=== PATIENT | female | born 1940 | race Caucasian/White ===

== ENCOUNTER → 2017-10-04 | Outpatient (CLI) | payer MEDICARE, BC | LOC: MC.RAD 14:08 | DX: Z12.31 Encounter for screening mammogram for malignant neoplasm of breast (principal) ==

== ENCOUNTER → 2017-12-11 | Outpatient (CLI) | payer MEDICARE, BC | LOC: COL.RAD 10:33 | DX: K80.20 Calculus of gallbladder without cholecystitis without obstruction (principal) | CPT/HCPCS: Q9967 ==

== ENCOUNTER 2017-12-29 07:53 | Day surgery (SDC) | payer MEDICARE, BC ==
[~2017-12-29] VITALS: Ht 167.6 cm; Wt 80.0 kg
[2017-12-29 08:52] VITALS: BP 130/66; PULSE 82; TEMP 98.2
[2017-12-29] MEDS ORDERED: HCTZ 25MG TAB25 MG PO (09:04)
[2017-12-29] MEDS ORDERED: COZAAR 25MG25 MG/TAB PO (09:04)
[2017-12-29] MEDS ORDERED: NEURONTIN300 MG/CAP PO (09:04)
[2017-12-29] MEDS ORDERED: MULTI VITAMINS1 TAB PO (09:05)
[2017-12-29] MEDS ORDERED: ZANTAC 150MG T150 MG PO (09:05)
[2017-12-29] MEDS ORDERED: VITAMIN D 400400 IU PO (09:05)
[2017-12-29] MEDS ORDERED: VITAMIN B COMPL1 SGL PO (09:06)
[2017-12-29] MEDS ORDERED: OMEGA-3 1000 MG1 CAP PO (09:06)
[2017-12-29] MEDS ORDERED: ASPIRIN 81M81 MG/TA2 PO (09:07)
[2017-12-29 11:50] VITALS: BP 106/43; PULSE 65; TEMP 98.4
[2017-12-29 12:05] VITALS: BP 110/45; PULSE 64
[2017-12-29 12:20] VITALS: BP 107/51; PULSE 68
[2017-12-29 12:35] VITALS: BP 115/48; PULSE 73
[2017-12-29 12:50] VITALS: BP 114/48; PULSE 62
[2017-12-29] MEDS ORDERED: NORCO 325 MG-51 TAB PO (12:56)
== END 2017-12-29 14:10 | disposition home or self-care (01) ==
LOC: SDCO 07:53
DX: K80.10 Calculus of gallbladder with chronic cholecystitis without obstruction (principal); I10 Essential (primary) hypertension; K21.9 Gastro-esophageal reflux disease without esophagitis; M19.90 Unspecified osteoarthritis, unspecified site; Z79.82 Long term (current) use of aspirin; Z90.710 Acquired absence of both cervix and uterus; Z80.3 Family history of malignant neoplasm of breast; Z82.49 Family history of ischemic heart disease and other diseases of the circulatory system
CPT/HCPCS: J1100; J1885; J2405; J2704; J2710; J3010; J7120; Q9967

== ENCOUNTER 2018-03-02 16:14 | Emergency (ER) | payer MEDICARE, BC ==
[~2018-03-02] VITALS: Ht 167.6 cm; Wt 77.3 kg
[~2018-03-02 16:14] MED LIST: ASPIRIN 81M81 MG/TA2 PO; COZAAR 25MG25 MG/TAB PO; HCTZ 25MG TAB25 MG PO; MULTI VITAMINS1 TAB PO; NEURONTIN300 MG/CAP PO; NORCO 325 MG-51 TAB PO; OMEGA-3 1000 MG1 CAP PO; VITAMIN B COMPL1 SGL PO; VITAMIN D 400400 IU PO; ZANTAC 150MG T150 MG PO
[2018-03-02 16:15] VITALS: TEMP 98.4
[2018-03-02] MEDS ORDERED: OXYCODONE-ACETAMINOP (16:54)
[2018-03-02] MEDS ORDERED: PERCOCET 325 MG1 TA2 PO (16:54)
[2018-03-02] MEDS ORDERED: ROBAXIN 75750 MG/TAB PO (16:57)
[2018-03-02 17:29] LABS: MEAN CELL VOLUME 92 fl (80.0-100.0); MEAN CORPUSCULAR HGB CONC 34 g/dl (33.0-37.0); MEAN PLATELET VOLUME 8.5 fl (7.4-10.4); PLATELET COUNT 383 K/mm3 (130-400); RED BLOOD COUNT 3.08 M/mm3 (4.10-5.30); REDCELL DISTRIBUTION WIDTH-CV 12.7 % (11.5-14.5)
[2018-03-02 17:32] LABS: HEMATOCRIT 28.3 % (37.0-47.0); HEMOGLOBIN 9.5 g/dl (12.5-16.0); MEAN CORPUSCULAR HEMOGLOBIN 31 pg (27.0-31.0)
[2018-03-02 17:46] LABS: BILIRUBIN,TOTAL 0.7 mg/dL (0.0-1.0); C-REACTIVE PROTEIN 5.4 mg/dL (0.0-0.9); CALCIUM 10.2 mg/dL (8.4-10.2); CREATININE, serum 0.63 mg/dL (0.52-1.25); POTASSIUM 3.5 mmol/L (3.4-5.0)
[2018-03-02 17:47] LABS: BAND 1 % (0-10); EOSINOPHIL 2 % (0-4); LYMPHOCYTE 20 % (20.0-51.0); METAMYELOCYTE 1 % (0-0); NEUTROPHILS 71 % (42.0-75.2); PLATELET ESTIMATE NORMAL (NORMAL)
[2018-03-02 19:47] LABS: COLLECTION METHOD CLEAN CATCH
[2018-03-02 19:55] LABS: AMORPHOUS CRYSTAL Present /uL; PH 7 (5-8); SQUAMOUS EPITHELIAL 0-2 /hpf; URINE APPEARANCE Clear; URINE BACTERIA Rare /hpf; URINE BILIRUBIN Negative (NEGATIVE); URINE BLOOD Negative (NEGATIVE); URINE COLOR Yellow; URINE GLUCOSE Negative (NEGATIVE); URINE KETONE Negative (NEGATIVE); URINE LEUKOCYTE ESTERASE Negative (NEGATIVE); URINE NITRATE Negative (NEGATIVE); URINE PROTEIN(semi-quant) Negative (NEGATIVE); URINE RBC None Seen /hpf; URINE UROBILINOGEN Negative (NEGATIVE)
[2018-03-03 00:40] VITALS: BP 120/59; PULSE 78
== END 2018-03-03 00:40 | disposition short-term general hospital (02) ==
LOC: COL.ER 16:14
PROVIDERS: Emergency Medicine
DX: G89.18 Other acute postprocedural pain (principal); M54.5 Low back pain; Z98.1 Arthrodesis status; Z79.82 Long term (current) use of aspirin
CPT/HCPCS: J1170; J1885

== ENCOUNTER → 2018-10-05 | Outpatient (CLI) | payer MEDICARE, BC ==
[~2018-10-05] MED LIST changes: +OXYCODONE-ACETAMINOP; +PERCOCET 325 MG1 TA2 PO; +ROBAXIN 75750 MG/TAB PO
== END ==
LOC: MC.RAD 09:56
DX: Z12.31 Encounter for screening mammogram for malignant neoplasm of breast (principal)

== ENCOUNTER 2019-03-14 16:12 | Inpatient (IN) | payer MEDICARE, BC ==
[~2019-03-14] VITALS: Ht 165.1 cm; Wt 74.7 kg
[2019-04-15] VITALS (11 sets, daily range): BP systolic 94–140; BP diastolic 49–63; PULSE 64–71; TEMP 97–98.1
--- NOTE | 2019-04-15 10:08 | NUR ---
MONTRELL met with the patient and her Jimmy to discuss a discharge plan. The pt lives with Jimmy right outside of [place]. The pt does not use DME and reports independence with ADLs. The pt's PCP is Dr. Darnell and receives her medications from [facility] with no difficulties. The pt does not have advanced directives in the EMR and was not interested in obtaining a DPOA-HC form. The pt plans to return home with Jimmy and reports she has lots of family support. MONTRELL will continue to follow for any discharge recommendations.
--- NOTE | 2019-04-15 15:16 | NUR ---
PT TO ROOM 328 PER BED WITH MARIJA KIRKPATRICK PACU GIVING REPORT @ 9772. PT IS A/O X3 DRESSING TO LEFT KNEE CDI WITH OCCLUSIVE JAY WRAP OVER INCISION. IV TO PUMP, PT TOLERATED WELL.
--- NOTE | 2019-04-15 15:30 | NUR ---
CATHETER TO DD WITH CLEAR YELLOW URINE IN BAG.
--- NOTE | 2019-04-15 18:50 | NUR ---
REPORT TO EVANS RN.
--- NOTE | 2019-04-15 20:00 | NUR ---
Patient awake, alert and oriented x4. Reports pain to left knee 4/10. Ambulates with LAMINATING MACHINE TENDER in hallway, gait steady. Has bandaid to right knee and large bulky drsg to left knee. Good pedal pulses and CSM to left leg. Has walters to BSD with yellow urine. REfuses Gabapentin for HS dose as she only takes this daily now. IV to right wrist with IVF infusing without redness or swelling.
--- NOTE | 2019-04-16 00:05 | NUR ---
Patient ambulates in hallway again with FREIGHT AND PASSENGER AGENT. Ready for bed after that.
--- NOTE | 2019-04-16 03:00 | NUR ---
Patient complains of left knee pain 04/24 that woke her up. Medicated with [place] 7.5mg 1 at this time. Instructed to call if pain continues.
[2019-04-16 04:33] VITALS: BP 111/48; PULSE 65; TEMP 97.7
[2019-04-16 06:57] LABS: HEMOGLOBIN 10.7 g/dl (12.5-16.0)
[2019-04-16 07:06] LABS: HEMATOCRIT 30.9 % (37.0-47.0)
--- NOTE | 2019-04-16 07:10 | NUR ---
Report to Frankie KIRKPATRICK.
--- NOTE | 2019-04-16 07:19 | NUR ---
REPORT FROM EVANS KIRKPATRICK.
[2019-04-16 07:45] VITALS: BP 125/60; PULSE 56; TEMP 98.7
--- NOTE | 2019-04-16 09:43 | NUR ---
PATIENT UP TO RECLINER FOR BREAKFAST. PAIN WELL CONTROLLED WITH PO MEDS. GRACIELA SANCHEZ IN TO ROUND ON PT THIS AM. DRESSING CHANGE COMPLETED. MOHAMUD CATHETER DISCONTINUED PER ORDERS. TIP INTACT, PT TOLERATED PROCEEDURE WELL. PLAN ON DC HOME 04/17.
[2019-04-16 11:33] VITALS: BP 102/41; PULSE 69; TEMP 98.4
--- NOTE | 2019-04-16 13:16 | NUR ---
Initial visit; Patient thanked Supervisor [employer] for looking in on her and visiting. Supervisor [employer] wished patient well and offered God's blessings.
[2019-04-16 16:03] VITALS: BP 127/47; PULSE 71; TEMP 98.4
--- NOTE | 2019-04-16 19:16 | NUR ---
report to Juan Antonio KIRKPATRICK.
[2019-04-16 19:30] VITALS: BP 137/43; PULSE 80; TEMP 98.3
--- NOTE | 2019-04-16 22:00 | NUR ---
Pt. sitting up in bed at this time. Pt. ambulated with the aid this evening. Pt. tolerated well. Pt. is A&OX3, assessment compete. INT to rt. wrist patent. pt. reported pain at a 4 on pain scale, will give pain meds per orders. Pt. denies further needs.
[2019-04-16 22:37] VITALS: BP 148/49; PULSE 67; TEMP 98.2
[2019-04-17 04:07] VITALS: BP 108/88; PULSE 64; TEMP 97.7
--- NOTE | 2019-04-17 06:47 | NUR ---
bedside shift report received from KAYA Romano
--- NOTE | 2019-04-17 07:10 | NUR ---
assisted up to bathroom and voided qs, then out and into recliner, full assessment completed, see interventions for further info, will order breakfast soon, denies needs
[2019-04-17 07:15] VITALS: BP 135/79; PULSE 61; TEMP 98.2
[2019-04-17] MEDS ORDERED: ULTRAM 50MG TAB50 MG PO (07:40)
[2019-04-17] MEDS ORDERED: CELEBREX 200MG200 MG PO (07:40)
[2019-04-17] MEDS ORDERED: NORCO 325 MG-7.1 TAB PO (07:41)
[2019-04-17 07:43] LABS: HEMATOCRIT 28.8 % (37.0-47.0)
--- NOTE | 2019-04-17 09:06 | NUR ---
ambulated out to [place]onso with physical therapy for group exercises
--- NOTE | 2019-04-17 09:40 | NUR ---
back to room after therapy and resting in recliner
--- NOTE | 2019-04-17 10:15 | NUR ---
Follow-up visit; Patient doing well, thanks for looking in on her and wishing her well.
--- NOTE | 2019-04-17 11:22 | NUR ---
has had shower with occupational therapy and tolerated well, c/o pain 01/23 and medicated with hydrocodone 7.5mg 1 tab
[2019-04-17 12:15] VITALS: BP 150/53; PULSE 69; TEMP 98.5
--- NOTE | 2019-04-17 13:08 | NUR ---
ambulated out to [place]onso with physical therapy for group exercises
--- NOTE | 2019-04-17 13:28 | NUR ---
back to room after therapy and into bathroom, voided qs, then to recliner
--- NOTE | 2019-04-17 14:15 | NUR ---
discharge instructions given to patient and her , verbalizes understanding
--- NOTE | 2019-04-17 14:34 | NUR ---
discharged per WC
== END 2019-04-17 14:35 | disposition home or self-care (01) | DRG 470 ==
LOC: JCC 04-15 07:30
PROVIDERS: Physician Assistant; ADMIT Orthopaedic Surgery
PROC: 0S9D0ZZ Drainage of Left Knee Joint, Open Approach (ICD-10-PCS; principal; 2019-04-15 12:00)
PROC: 3E0U33Z Introduction of Anti-inflammatory into Joints, Percutaneous Approach (ICD-10-PCS; principal; 2019-04-15 12:00)
PROC: 0SRD069 Replacement of Left Knee Joint with Oxidized Zirconium on Polyethylene Synthetic Substitute, Cemented, Open Approach (ICD-10-PCS; principal; 2019-04-15 12:00)
DX: M17.0 Bilateral primary osteoarthritis of knee (principal); M71.22 Synovial cyst of popliteal space [Baker], left knee; I10 Essential (primary) hypertension
CPT/HCPCS: A4314; A9284; C1776; J0690; J1885; J2250; J2704; J2795; J3301; J7120; J7121

== ENCOUNTER → 2019-10-11 | Outpatient (CLI) | payer MEDICARE, BC ==
[~2019-10-11] MED LIST changes: +CELEBREX 200MG200 MG PO; +NORCO 325 MG-7.1 TAB PO; +ULTRAM 50MG TAB50 MG PO
== END ==
LOC: MC.RAD 13:34
DX: Z12.31 Encounter for screening mammogram for malignant neoplasm of breast (principal); N63.23 Unspecified lump in the left breast, lower outer quadrant

== ENCOUNTER → 2019-10-15 | Outpatient (CLI) | payer MEDICARE, BC | LOC: MC.RAD 10:52 | DX: N63.23 Unspecified lump in the left breast, lower outer quadrant (principal); N60.02 Solitary cyst of left breast | CPT/HCPCS: G0279 ==

== ENCOUNTER → 2020-10-12 | Outpatient (CLI) | payer MEDICARE, BC | LOC: MC.RAD 12:57 | DX: Z12.31 Encounter for screening mammogram for malignant neoplasm of breast (principal) ==

== ENCOUNTER → 2022-01-20 | Outpatient (CLI) | payer MEDICARE, BC | LOC: MC.RAD 13:07 | DX: Z12.31 Encounter for screening mammogram for malignant neoplasm of breast (principal) ==

== ENCOUNTER → 2024-08-01 | Outpatient (CLI) | payer MEDICARE, BC | LOC: MC.RAD 09:40 | DX: Z12.31 Encounter for screening mammogram for malignant neoplasm of breast (principal) ==